=== PATIENT | female | born 1950 | race Caucasian/White ===

== ENCOUNTER 2017-03-18 09:29 | Day surgery (SDC) | payer MEDICARE, OTHER ==
--- NOTE | ~2017-03-18 | EGD ---
EGD REPORT [facility] [address] [place] [address] NAME: NORIS NIEVES : [birth year] STATUS : REG [facility]#: [id number] AGE: 66 ADM/REG DATE : 03/18/17 MR#: [id number] REPORT SERV DATE: 03/18/17 DICTATED BY: JULIO CESAR MYERS DATE: 03/18/17 REPORT STATUS : Draft TRANSCRIBED BY: [facility] DATE: 03/18/17 Endoscopy Center Patient Name: Noris Nieves Date of : 1950 Attending MD: JULIO CESAR MYERS MD Procedure Date No Time: 03/18/2017 Procedure: Upper GI endoscopy Indications: Epigastric abdominal pain, Nausea Referring MD: MUSTAPHA MARES Medicines: Propofol per Anesthesia Complications: No immediate complications. Procedure: Pre-Anesthesia Assessment: - ASA Grade Assessment: I - A normal, healthy patient. After obtaining informed consent, the endoscope was passed under direct vision. Throughout the procedure, the patient's blood pressure, pulse, and oxygen saturations were monitored continuously. The GIF [id number] was introduced through the mouth, and advanced to the second part of duodenum. The upper GI endoscopy was accomplished without difficulty. The patient tolerated the procedure well. Findings: The examined esophagus was normal. Diffuse mild inflammation characterized by erosions and erythema was found in the stomach. Biopsies were taken with a cold forceps for histology. The examined duodenum was normal. Biopsies were taken with a cold forceps for histology. Impression: - Normal esophagus. - Chronic gastritis. Biopsied. - Normal examined duodenum. Biopsied. Recommendation: - Discharge patient to home (ambulatory). - Return to nurse practitioner in 3 weeks. Procedure Code(s): --- Professional --- 99722, Esophagogastroduodenoscopy, flexible, transoral; with biopsy, single or multiple Diagnosis Code(s): --- Professional --- K29.50, Unspecified chronic gastritis without bleeding R10.13, Epigastric pain R11.0, Nausea EGD REPORT [facility] [address] [place]. [address] NAME: NORIS NIEVES : [birth year] STATUS : REG [facility] PAT#: [id number] AGE: 66 ADM/REG DATE : 03/18/17 MR#: [id number] REPORT SERV DATE: 03/18/17 DICTATED BY: JULIO CESAR MYERS. DATE: 03/18/17 REPORT STATUS : Draft TRANSCRIBED BY: [facility] [facility] DATE: 03/18/17 CPT copyright 2013 [employer]. All rights reserved. The codes documented in this report are preliminary and upon day haul youth supervisor review may be revised to meet current compliance requirements. Julio Cesar Myers MD JULIO CESAR MYERS MD 03/18/2017 10:46 AM This report has been signed electronically. Number of Addenda: 0 Note Initiated On: 03/18/2017 10:35 AM Scope Withdrawal Time 0 hours 0 minutes 0 seconds [address] [facility] [place] [address]
[~2017-03-18 09:29] MED LIST: ASAB PO; CRESTOR5 MG PO; GARLIC; [UNRECOGNIZED DRUG - OTHER] PO
== END 2017-03-18 23:59 | disposition home or self-care (01) ==
LOC: DMU 09:29
PROVIDERS: Internal Medicine Gastroenterology
PROC: 0DB68ZX Excision of Stomach, Via Natural or Artificial Opening Endoscopic, Diagnostic (ICD-10-PCS; 2017-03-18)
PROC: 0DB98ZX Excision of Duodenum, Via Natural or Artificial Opening Endoscopic, Diagnostic (ICD-10-PCS; principal; 2017-03-18 10:30)
DX: K29.50 Unspecified chronic gastritis without bleeding (principal); Z88.2 Allergy status to sulfonamides; Z79.82 Long term (current) use of aspirin; Z90.49 Acquired absence of other specified parts of digestive tract; Z98.890 Other specified postprocedural states
CPT/HCPCS: 88305